=== PATIENT | female | born 1965 | race Two or more races ===

== ENCOUNTER 2022-12-19 20:22 | Emergency (ER) | payer OTHER ==
[~2022-12-19] VITALS: Ht 167.6 cm; Wt 70.8 kg
[2022-12-19] MEDS ORDERED: ZESTRIL10 M1 PO (20:42)
[2022-12-19] MEDS ORDERED: PROZAC20 MG PO (20:43)
== END 2022-12-19 23:18 | disposition home or self-care (01) ==
LOC: ER 20:22
DX: I10 Essential (primary) hypertension (principal); F41.9 Anxiety disorder, unspecified; R53.81 Other malaise